=== PATIENT | female | born 1955 | race American Indian/Alaskan Native ===

== ENCOUNTER 2017-10-21 05:40 | Emergency (ER) | payer MEDICARE ==
--- NOTE | 2017-10-21 06:01 | Emergency Department Report ---
ED CPR HPI - General Stated Complaint: CARDIAC ARREST Time Seen by Provider: 10/21/17 05:56 Source: EMS Mode of arrival: Stretcher - History of Present Illness Initial Comments: 62 yo female who was brought in via ems with cpr in place. Last known well time was 0330. EMS gave one round of medicines in addition to CPR prior to arrival. Patient pronounced in the ED on arrival. MD Complaint: found unresponsive -: unknown Place: NH/SNF Bystander CPR Performed: No AED Applied by Bystander/City Plant Supervisor: Yes (EMS ) Shock Advised: No Downtime Before ACLS Arrival (mins): 2 (hours ) Initial Findings in the Field: unresponsive, no pulse ROSC in the Field: No Associated Injuries: No Associated Symptoms: other (none) Treatments Prior to Arrival: BMV, chest compressions, epinephrine mgs # ED Review of Systems ROS: Stated complaint: CARDIAC ARREST Other details as noted in HPI Comment: Unobtainable due to pts medical conditions ED Past Medical Hx - Past Medical History Previous Medical History?: Yes ED Physical Exam - General Limitations: Other ( ) General appearance: other () - Head Head exam: Present: atraumatic - Eye Eye exam: Present: other (fixed) Pupils: Present: other (fixed and dilated ) - ENT ENT exam: Present: other (aspirate-mouth and facial area ) - Respiratory Respiratory exam: Present: other (no respirations-bmv) - Cardiovascular Cardiovascular Exam: Present: other (asystole) - GI/Abdominal GI/Abdominal exam: Present: distended - Extremities Exam Extremities exam: Present: other (cold, pulseless ) - Neurological Exam Neurological exam: Present: other () - Psychiatric Psychiatric exam: Present: other () - Skin Skin exam: Present: dry, other (cold ) ED Course - Reevaluation(s) Reevaluation #1: 10/21/17 06:03 Patient was evaluated by me upon arrival. No pulses or respirations noted. CPR and ACLS halted. Patient pronounced at 0540. ED Medical Decision Making - Medical Decision Making Cardiac arrest [place] Pulmonary embolus - Differential Diagnosis cardiac arrest, myocardial infarction, pulmonary embolus Critical care attestation.: If time is entered above; I have spent that time in minutes in the direct care of this critically ill patient, excluding procedure time. ED Disposition Clinical Impression: Cardiac arrest, Myocardial infarction, Pulmonary embolus Disposition: DC-20 Is pt being admited?: No Does the pt Need Aspirin: No Condition: Poor Instructions: Acute Coronary Syndrome (ED) Referrals: TESSA ANDREWS MD [Primary Care Provider] - 3-5 Days Time of Disposition: 06:06
== END 2017-10-21 07:15 ==
LOC: ED 05:40
DX: I46.9 Cardiac arrest, cause unspecified (principal); I21.9 Acute myocardial infarction, unspecified; I26.99 Other pulmonary embolism without acute cor pulmonale
CPT/HCPCS: 99285